=== PATIENT | male | born 1980 | race Two or more races ===

== ENCOUNTER 2016-11-18 21:12 | Emergency (ER) | payer OTHER, SELFPAY ==
[2016-11-18 21:27] VITALS: BP 124/84; PULSE 74; RESP 20; TEMP 98; O2SAT 95
[2016-11-18] MEDS ORDERED: Lidocaine 5% Patch TD ONE (21:43)
--- NOTE | 2016-11-18 21:44 | C.PDOC ---
History Of Present Illness 36 year old patient presents to the ED complaining of non-radiating lower back pain that started 3 hours prior to arrival. Patient states he was playing soccer with his kids, but there was no fall or injuries involved. Afterwards when he sat down, he felt a sharp and tightening pain. It was difficult to get up and ambulate. Patient feels better being seated. He denies any numbness, weakness, incontinence, or history of severe back pain. Patient took Tylenol with no relief. Time Seen by Provider: 11/18/16 21:34 Chief Complaint (Nursing): Back Pain History Per: Patient History/Exam Limitations: no limitations Onset/Duration Of Symptoms: Hrs (3 hours prior to arrival) Current Symptoms Are (Timing): Still Present Quality Of Discomfort: "Pain" Severity: Moderate Pain Scale Rating Of: 4 Previous Symptoms: Back Pain Associated Symptoms: None Exacerbating Factor(s): Movement, Standing Recent travel outside of the [place]: No Past Medical History Reviewed: Historical Data, Nursing Documentation, Vital Signs Vital Signs: Last Vital Signs Temp 98.0 F 11/18/16 21:26 Pulse 74 11/18/16 21:26 Resp 20 11/18/16 23:07 BP 124/84 11/18/16 21:26 Pulse Ox 95 11/18/16 22:37 - [facility] Procedures TETANUS TOXOID ADMINIST (10/04/13) Family History: States: Unknown Family Hx - Social History Hx Tobacco Use: No Hx Alcohol Use: Yes (socially) Hx Substance Use: No - Immunization History Hx Tetanus Toxoid Vaccination: Yes Hx Influenza Vaccination: No Hx Pneumococcal Vaccination: No Review Of Systems Except As Marked, All Systems Reviewed And Found Negative. Genitourinary: Negative for: Incontinence Musculoskeletal: Positive for: Back Pain Neurological: Negative for: Weakness, Numbness Physical Exam - Physical Exam Appears: Non-toxic, Other (uncomfortable, in pain) Skin: Warm, Dry Head: Atraumatic, Normacephalic Eye(s): bilateral: Normal Inspection, EOMI Neck: Normal ROM, Supple Chest: Symmetrical Cardiovascular: Rhythm Regular, No Murmur Respiratory: Normal Breath Sounds, No Accessory Muscle Use, No Wheezing Back: No CVA Tenderness, No Vertebral Tenderness, No Muscle Spasm, No Paraspinal Tenderness, Other (diffuse lumbo-sacral tenderness; pain with flexion ) Extremity: Normal ROM Neurological/Psych: Oriented x3, Normal Speech, Normal Motor, Normal Sensation Gait: Steady ED Course And Treatment O2 Sat by Pulse Oximetry: 95 (RA) Pulse Ox Interpretation: Normal Medical Decision Making Medical Decision Making: Impression: 36 y/o male with back pain Plan: * Valium * Toradol * Lidoderm Progress: 2230 Patient is ambulatory and reports pain is improving. He feels more comfortable walking and standing. Patient states he feels comfortable going home and will be discharged with Rx. Disposition Counseled Patient/Family Regarding: Diagnosis, Need For Followup, Rx Given - Disposition Disposition: HOME/ ROUTINE Disposition Time: 22:35 Condition: IMPROVED Additional Instructions: Follow up with your primary medical doctor or clinic in 2-5 days for further evaluation. Take medications as prescribed and as needed for back pain. Lidoderm patch is to be left on for 12 hours and then removed for 12 hours. Return to the emergency department at any time if symptoms persist or worsen. Prescriptions: Cyclobenzaprine [Cyclobenzaprine HCl] 10 mg PO TID #21 tab Ibuprofen [Motrin] 600 mg PO Q8 #30 tab Lidocaine 5% [Lidoderm] 1 ea TD Q12 #10 patch Instructions: Acute Low Back Pain (DC) Forms: Work Excuse - POA Present On Arrival: None - Clinical Impression Clinical Impression: Low back pain, Low back strain - PA / LEARNING DEVELOPER / Resident Statement MD/DO has reviewed & agrees with the documentation as recorded. - Scribe Statement The provider has reviewed the documentation as recorded by the Scribe Alina Saldivar All medical record entries made by the Scribe were at my direction and personally dictated by me. I have reviewed the chart and agree that the record accurately reflects my personal performance of the history, physical exam, medical decision making, and the department course for this patient. I have also personally directed, reviewed, and agree with the discharge instructions and disposition.
[2016-11-19] MEDS ORDERED: Lidocaine 5% Patch TD SCH (10:00)
== END 2016-11-18 23:07 | disposition home or self-care (01) ==
LOC: C.ER 21:12
DX: S39.012A Strain of muscle, fascia and tendon of lower back, initial encounter (principal); X58.XXXA Exposure to other specified factors, initial encounter; Y93.66 Activity, soccer
CPT/HCPCS: 96372; 99284; J1885

== ENCOUNTER 2017-12-10 09:51 | Observation (INO) | payer OTHER ==
[2017-12-10 10:09] VITALS: BMI 21.6
[2017-12-10] MEDS ORDERED: Sodium Chloride 0.9% 1,000 ML IV ONE (10:55)
--- NOTE | 2017-12-10 10:55 | C.PDOC ---
History Of Present Illness 37-year-old male presents to the ED complaining of dizziness associated with nausea and vomiting for 3 days. Dizziness is described as room-spinning, and worsens with movement and change in position. Patient denies recent URI symptoms , fevers, headache, ear pain or discharge. No abdominal pain. Patient denies prior history of vertigo. VERTIGO-LIKE DIZZY, NV X 3 DAYS. INTERMIT WORSE W MOVEMENT/POSITION CHANGE. DENIES RECENT URI, [place], EAR SX. NO ABD PAIN. DENIES PRIOR HO VERTIGO EXAM MOD DIST NONTOXIC HEENT NO NYSTAGMUS. NEURO NO FOCAL DEF. INDUCIBLE VERTIGO W MOVEMENT REMAINDER NEG Time Seen by Provider: 12/10/17 10:07 Chief Complaint (Nursing): Dizziness/Lightheaded History Per: Patient History/Exam Limitations: no limitations Onset/Duration Of Symptoms: Days (x3) Current Symptoms Are (Timing): Still Present Activity At Onset Of Symptoms: Change In Head Position Possible Causative Factor(s): Vertigo Fall Associated With With Symptoms: No Past Medical History Reviewed: Historical Data, Nursing Documentation, Vital Signs Vital Signs: Last Vital Signs Temp 97.9 F 12/10/17 12:45 Pulse 79 12/10/17 12:45 Resp 18 12/10/17 12:45 BP 117/69 12/10/17 12:45 Pulse Ox 97 12/10/17 15:32 Surgical History: No Surg Hx - [facility] Procedures TETANUS TOXOID ADMINIST (10/04/13) Family History: States: Unknown Family Hx - Social History Hx Tobacco Use: No Hx Alcohol Use: Yes (socially) Hx Substance Use: No - Immunization History Hx Tetanus Toxoid Vaccination: Yes Hx Influenza Vaccination: No Hx Pneumococcal Vaccination: No Review Of Systems Except As Marked, All Systems Reviewed And Found Negative. Constitutional: Negative for: Fever, Chills ENT: Negative for: Ear Pain, Ear Discharge, Nose Congestion, Throat Pain Respiratory: Negative for: Cough, Shortness of Breath Gastrointestinal: Positive for: Nausea, Vomiting. Negative for: Abdominal Pain Musculoskeletal: Negative for: Neck Pain Neurological: Positive for: Dizziness. Negative for: Weakness, Numbness, Headache Physical Exam - Physical Exam Appears: Non-toxic, In Acute Distress (moderate) Skin: Normal Color, Warm, Dry Head: Atraumatic, Normacephalic Eye(s): bilateral: Normal Inspection (with no nystagmus), PERRL, EOMI Ear(s): Bilateral: Normal Nose: Normal Oral Mucosa: Moist Neck: Normal ROM, Supple Chest: Symmetrical Cardiovascular: Rhythm Regular, No Murmur Respiratory: Normal Breath Sounds, No Accessory Muscle Use, Other (No acute respiratory distress) Gastrointestinal/Abdominal: Soft, No Tenderness, No Distention Back: Normal Inspection, No CVA Tenderness, No Vertebral Tenderness Extremity: Bilateral: Atraumatic, Normal Color And Temperature, Normal ROM Pulses: Left Radial: Normal, Right Radial: Normal Neurological/Psych: Oriented x3, Normal Speech, Normal Cranial Nerves, Normal Motor (with no focal deficits), Normal Sensation, Other (Inducible vertigo with movement) Gait: Steady ED Course And Treatment - Laboratory Results Result Diagrams: 12/10/17 16:01 12/10/17 16:01 ECG: Interpreted By Me ECG Rhythm: Sinus Rhythm Rate From EC O2 Sat by Pulse Oximetry: 97 (RA) Pulse Ox Interpretation: Normal Progress - Re-Evaluation Re-evaluation Note: 12/10/17 15:20 PERSIST VERTIGO, NV S/P MECLIZINE AND ATIVAN. UNSTEADY GAIT, INDUCIBLE VERTIGO W MINIMAL POSITION CHANGE. PENDING CALLBACK MED DIRECT CARE STAFFER 12/10/17 15:24 D/W DR MOSELEY AWARE OF ER FINDINGS WILL ADMIT. LABS PENDING. - Interventions Interventions:: Intravenous fluid - Medications Administered Oral: Other (Meclizine) Intravenous: Other (Reglan) - Data Reviewed Data Reviewed: Lab, Diagnostic imaging, EKG, Old records Medical Decision Making Medical Decision Making: Initial Impression: 37 y/o with vertigo-like dizziness, nausea, vomiting Differential Diagnosis includes vertigo, r/o intracranial abnormality Initial Plan: * CT Head * IVF hydration * Trial of meclizine and reglan Disposition Counseled Patient/Family Regarding: Studies Performed, Diagnosis - Disposition Disposition: HOSPITALIZED Disposition Time: 15:24 Condition: STABLE - POA Present On Arrival: None - Clinical Impression Clinical Impression: Intractable vomiting, Peripheral vertigo, unspecified - Scribe Statement The provider has reviewed the documentation as recorded by the Scribe (Annette Casiano) Provider Attestation: All medical record entries made by the Scribe were at my direction and personally dictated by me. I have reviewed the chart and agree that the record accurately reflects my personal performance of the history, physical exam, medical decision making, and the department course for this patient. I have also personally directed, reviewed, and agree with the discharge instructions and disposition. Decision To Admit - Pt Status Changed To: Hospital Disposition Of: Observation - . Bed Request Type: Regular Admitting Physician: Charlotte Moseley Patient Diagnosis: Intractable vomiting, Peripheral vertigo, unspecified
[2017-12-10] MEDS ORDERED: Sodium Chloride 0.9% 1,000 ML ONE (11:06)
--- NOTE | 2017-12-10 14:11 | CT ---
PROCEDURE: CT HEAD WITHOUT CONTRAST. HISTORY: VERTIGO COMPARISON: None available. TECHNIQUE: Axial computed tomography images were obtained through the head/brain without intravenous contrast. Radiation dose: Total exam DLP = 970.10 mGy-cm. This CT exam was performed using one or more of the following dose reduction techniques: Automated exposure control, adjustment of the mA and/or kV according to patient size, and/or use of iterative reconstruction technique. FINDINGS: HEMORRHAGE: No intracranial hemorrhage. BRAIN: No mass effect or edema. No atrophy or chronic microvascular ischemic changes. VENTRICLES: Unremarkable. No hydrocephalus. CALVARIUM: Unremarkable. PARANASAL SINUSES: Unremarkable as visualized. No significant inflammatory changes. MASTOID AIR CELLS: Unremarkable as visualized. No inflammatory changes. OTHER FINDINGS: None. IMPRESSION: Normal CT of the Head. No intracranial mass, hemorrhage or evidence of acute infarct.
[2017-12-10 16:05] LABS: BASO # 0.1 K/uL (0.0-0.2); BASO % 0.5 % (0.0-2.0); EOS % 0.2 % (0.0-4.0); HEMOGLOBIN 16.2 g/dL (12.0-18.0); LYMPH % 8.8 % (20.0-40.0); MEAN CELL VOLUME 91.9 fL (80.0-94.0); MEAN CORPUSCULAR HEMOGLOBIN 32.6 pg (27.0-31.0); MEAN CORPUSCULAR HGB CONC 35.4 g/dL (33.0-37.0); MONO # 0.4 K/uL (0.0-0.8); MONO % 3.4 % (0.0-10.0); NEUT # 9.5 K/uL (1.8-7.0); NEUT % 87.1 % (50.0-75.0); PLATELET COUNT 335 K/uL (130-400); RBC 4.98 Mil/uL (4.40-5.90); RED CELL DISTRIBUTION WIDTH 13.4 % (11.5-14.5); WHITE BLOOD COUNT 10.9 K/uL (4.8-10.8)
[2017-12-10] MEDS ORDERED: Lactated Ringer's 1,000 ML IV ONE (16:15)
[2017-12-10 16:16] LABS: BLOOD UREA NITROGEN 17 mg/dL (9-20); CALCIUM 9.5 mg/dl (8.6-10.4); GFR AFRICAN-AMERICAN > 60; GFR NON-AFRICAN AMERICAN > 60
--- NOTE | 2017-12-10 16:17 | CP.PCM.HP ---
<Tammie Smyth - Last Filed: 12/10/17 16:55> History of Present Illness - History of Present Illness History of Present Illness: CC - "N/V, Dizziness" HPI - 37-year-old male with no past medical history presents to the ED today complaining of dizziness associated with nausea and vomiting for 3 days. He stated this started 2 nights ago but came in the morning because he started vomiting. He states he has vomited many times today just saliva no blood. He is hungry but has not been able to eat this morning. Dizziness is described as room -spinning, and worsens with movement and change in position. Patient denies recent URI symptoms, fevers, headache, ear pain or discharge. Denies abdominal pain but states he had two watery BM this morning. No urinary complaints. Denies weakness, tingling, numbness but has difficulty ambulating with the dizziness. Patient denies prior history of vertigo. Pmhx - denies, occasional back pain Surg - hernia repair in 2014 (had reactions to anesthesia N/V) Meds - nasal spray for allergies, aspriin prn back pain Allergies - sulfa (rash), seasonal Fam Hx - grandfather with diabetes, no hx of [place], stroke, cancer Social - denies drug/tobacco use, occasional alcohol 1 drink of beer with dinner Proxy - Florecita Sosa () [phone] A/D - none Patient is a [employer] and thus stated he would not want blood transfusions. Present on Admission - Present on Admission Any Indicators Present on Admission: No Review of Systems - Constitutional Constitutional: absent: Chills, Fever, Frequent Falls - EENT Eyes: absent: Blurred Vision, Change in Vision, Other Visual Disturbances Ears: Disequilibrium, Dizziness. absent: Decreased Hearing, Ear Discharge, Ear Pain, Tinnitus, Abnormal Hearing Nose/Mouth/Throat: absent: Nasal Congestion, Nasal Discharge, Sinus Pain, Sinus Pressure, Sore Throat - Cardiovascular Cardiovascular: absent: Chest Pain, Chest Pain at Rest, Edema, Palpitations, Syncope - Respiratory Respiratory: absent: Cough, Dyspnea, Dyspnea on Exertion - Gastrointestinal Gastrointestinal: Diarrhea, Nausea, Vomiting. absent: Abdominal Pain, Constipation - Genitourinary Genitourinary: absent: Change in Urinary Stream, Difficulty Urinating - Neurological Neurological: Abnormal Gait, Dizziness. absent: Abnormal Hearing, Numbness, Headaches, Tingling, Weakness Past Patient History - Past Social History Smoking Status: Never Smoked - PSYCHIATRIC Hx Substance Use: No - SURGICAL HISTORY Hx Surgeries: No - ANESTHESIA Hx Anesthesia: No Meds Allergies/Adverse Reactions: Allergies Allergy/AdvReac Type Severity Reaction Status Date / Time Sulfa (Sulfonamide Allergy Verified 11/18/16 21:34 Antibiotics) Physical Exam - Constitutional Appears: Non-toxic, No Acute Distress Additional comments: Can't ambulate - Head Exam Head Exam: ATRAUMATIC, NORMAL INSPECTION, NORMOCEPHALIC - Eye Exam Eye Exam: EOMI, Normal appearance, PERRL. absent: Nystagmus, Scleral icterus Pupil Exam: NORMAL ACCOMODATION, PERRL - ENT Exam ENT Exam: Mucous Membranes Dry - Expanded ENT Exam Expanded Ear exam: absent: Auricular Hematoma, Auricular Trauma, External Canal Tenderness - Neck Exam Neck exam: Positive for: Normal Inspection. Negative for: Tenderness - Respiratory Exam Respiratory Exam: Clear to Auscultation Bilateral, NORMAL BREATHING PATTERN. absent: Accessory Muscle Use, Rales, Rhonchi, Wheezes - Cardiovascular Exam Cardiovascular Exam: REGULAR RHYTHM, +S1, +S2 - GI/Abdominal Exam GI & Abdominal Exam: Normal Bowel Sounds, Soft. absent: Distended, Firm, Guarding, Tenderness - Extremities Exam Extremities exam: Positive for: normal inspection. Negative for: calf tenderness, pedal edema - Back Exam Back exam: NORMAL INSPECTION. absent: CVA tenderness (L), CVA tenderness (R), paraspinal tenderness - Neurological Exam Neurological exam: Abnormal Gait, Alert, CN II-XII Intact, Oriented x3, Reflexes Normal Additional comments: Dizziness brought on by sitting, moving head. - Expanded Neurological Exam Expanded Patient oriented to: person, place, time Speech: Fluid Speech Cranial nerves: EOM's Intact: Normal, Facial Palsey w/Forehead Movement: Normal , Facial Palsey w/o Forehead Movement: Normal, Facial Sensation: Normal, Gag Reflex: Normal, Nystagmus: Normal, Tongue Deviation: Normal Upper motor neuron: Babinski Sign: Normal, Finn Neglect: Normal, Pronator Drift : Normal, Sensory Extinction: Normal Neuro motor strength exam: Left Upper Extremity: 5, Right Upper Extremity: 5, Left Lower Extremity: 5, Right Lower Extremity: 5 Coma Scale Motor Response: OBEYS COMMANDS Coma Scale Verbal: Oriented - Psychiatric Exam Psychiatric exam: Normal Affect, Normal Mood - Skin Skin Exam: Dry, Intact, Normal Color Results - Vital Signs Recent Vital Signs: Last Vital Signs Temp 97.9 F 12/10/17 12:45 Pulse 79 12/10/17 12:45 Resp 18 12/10/17 12:45 BP 117/69 12/10/17 12:45 Pulse Ox 97 12/10/17 15:32 - Labs Result Diagrams: 12/10/17 16:01 12/10/17 16:01 Labs: Laboratory Results - last 24 hr 12/10/17 16:01 WBC 10.9 H RBC 4.98 Hgb 16.2 Hct 45.7 MCV 91.9 MCH 32.6 H MCHC 35.4 RDW 13.4 Plt Count 335 MPV 8.0 Neut % (Auto) 87.1 H Lymph % (Auto) 8.8 L Cuming % (Auto) 3.4 Eos % (Auto) 0.2 Baso % (Auto) 0.5 Neut # (Auto) 9.5 H Lymph # (Auto) 1.0 Cuming # (Auto) 0.4 Eos # (Auto) 0.0 Baso # (Auto) 0.1 Assessment & Plan - Assessment and Plan (Free Text) Assessment: Intractable Vertigo likely secondary to BPPV or labrynthitis Head CT negative Ekg NSR Neurology consulted. Dr. Hernandez - help appreciated Consider MRI if no improvement LR at 100cc/hour Meclizine 25 mg PO TID Ativan 0.5 mg IVO Q8 prn severe dizziness Reglan 10mg IVP Q6 prn nausea/vomiting Fall risk protocol Prophylaxis SCDs Fall risk Liquid diet <Bharat Rubio - Last Filed: 12/11/17 10:02> Results - Vital Signs Recent Vital Signs: Last Vital Signs Temp 97.6 F 12/10/17 23:20 Pulse 64 12/10/17 23:20 Resp 20 12/10/17 23:20 BP 111/60 12/10/17 23:20 Pulse Ox 99 12/10/17 23:20 - Labs Result Diagrams: 12/11/17 07:49 12/11/17 07:49 Labs: Laboratory Results - last 24 hr 12/10/17 12/10/17 12/11/17 16:01 16:01 07:49 WBC 10.9 H 9.8 RBC 4.98 4.51 Hgb 16.2 14.6 Hct 45.7 41.7 MCV 91.9 92.4 MCH 32.6 H 32.5 H MCHC 35.4 35.1 RDW 13.4 13.4 Plt Count 335 284 MPV 8.0 7.4 Neut % (Auto) 87.1 H 76.5 H Lymph % (Auto) 8.8 L 15.3 L Cuming % (Auto) 3.4 7.0 Eos % (Auto) 0.2 0.8 Baso % (Auto) 0.5 0.4 Neut # (Auto) 9.5 H 7.5 H Lymph # (Auto) 1.0 1.5 Cuming # (Auto) 0.4 0.7 Eos # (Auto) 0.0 0.1 Baso # (Auto) 0.1 0.0 Neutrophils % (Manual) 81 H Band Neutrophils % 1 Lymphocytes % (Manual) 12 L Monocytes % (Manual) 4 Eosinophils % (Manual) 2 Platelet Estimate Normal Sodium 143 Potassium 4.6 Chloride 107 Carbon Dioxide 23 Anion Gap 18 BUN 17 Creatinine 0.7 L Est GFR ( Amer) > 60 Est GFR (Non-Af Amer) > 60 Random Glucose 101 Calcium 9.5 Magnesium Total Bilirubin AST ALT Alkaline Phosphatase Total Protein Albumin Globulin Albumin/Globulin Ratio 12/11/17 07:49 WBC RBC Hgb Hct MCV MCH MCHC RDW Plt Count MPV Neut % (Auto) Lymph % (Auto) Cuming % (Auto) Eos % (Auto) Baso % (Auto) Neut # (Auto) Lymph # (Auto) Cuming # (Auto) Eos # (Auto) Baso # (Auto) Neutrophils % (Manual) Band Neutrophils % Lymphocytes % (Manual) Monocytes % (Manual) Eosinophils % (Manual) Platelet Estimate Sodium 142 Potassium 3.6 Chloride 108 H Carbon Dioxide 26 Anion Gap 11 BUN 12 Creatinine 0.6 L Est GFR ( Amer) > 60 Est GFR (Non-Af Amer) > 60 Random Glucose 86 Calcium 8.9 Magnesium 1.9 Total Bilirubin 0.8 AST 32 ALT 28 Alkaline Phosphatase 55 Total Protein 6.7 Albumin 3.6 Globulin 3.1 Albumin/Globulin Ratio 1.1 Attending/Attestation - Attestation I have personally seen and examined this patient.: Yes I have fully participated in the care of the patient.: Yes I have reviewed all pertinent clinical information: Yes Notes (Text): Patient was seen and examined in the ER Severe vertigo and vomiting,No fever,no headache,no nystagmus,no weakness,no significant past medical problem. Likely due to labrynthitis.Unlikely cerebellar stroke. CT brain is normal. We will get neurologist opinion Order ativan,zofran ,meclizine and fluids d/w patient and his at bedside I agree with the resident's assessment and the plan.
[2017-12-10 18:20] LABS: BANDS 1 % (0-2); EOSINOPHIL 2 % (0-4); LYMPHOCYTE 12 % (20-40); MONOCYTE 4 % (0-10); NEUTROPHIL 81 % (50-75); PLATELET ESTIMATE NORMAL (NORMAL); TOTAL CELLS COUNTED 100
[2017-12-10] MEDS ORDERED: Lactated Ringer's 1,000 ML ONE (19:00)
[2017-12-10] MEDS ORDERED: diaZEpam 10 mg/2 ml Inj IVP ONE (20:55)
[2017-12-10] MEDS ORDERED: Iodixanol 320 MG/ML 100 ML BOTTLE IV ONE (21:31)
--- NOTE | 2017-12-11 00:06 | CT ---
EXAM: CT Angiography Head With Intravenous Contrast CT Angiography Neck With Intravenous Contrast EXAM DATE/TIME: 12/10/2017 9:00 PM CLINICAL HISTORY: 37 years old, male; Signs and symptoms; Dizziness and giddiness and vertigo; Additional info: Vertigo/ vomiting/ear pain TECHNIQUE: Axial computed tomographic angiography images of the head and neck with intravenous contrast using CT angiography protocol. All CT scans at this facility use one or more dose reduction techniques, viz.: automated exposure control; ma/kV adjustment per patient size (including targeted exams where dose is matched to indication; i.e. head); or iterative reconstruction technique. All CT scans at this facility use one or more dose reduction techniques, viz.: automated exposure control; ma/kV adjustment per patient size (including targeted exams where dose is matched to indication; i.e. head); or iterative reconstruction technique. MIP reconstructed images were created and reviewed. Coronal and sagittal reformatted images were created and reviewed. CONTRAST: 100 mL of VISIPAQUE 320 administered intravenously. COMPARISON: Recent head CT 2017-12-10 13:48 FINDINGS: LIMITATIONS: Streak artifact from metallic dental hardware. HEAD: RIGHT ANTERIOR CEREBRAL ARTERY: No evidence of occlusion. No aneurysm visualized. RIGHT MIDDLE CEREBRAL ARTERY: No evidence of occlusion. No aneurysm visualized. RIGHT POSTERIOR CEREBRAL ARTERY: No evidence of occlusion. No aneurysm visualized. LEFT ANTERIOR CEREBRAL ARTERY: No evidence of occlusion. No aneurysm visualized. LEFT MIDDLE CEREBRAL ARTERY: No evidence of occlusion. No aneurysm visualized. LEFT POSTERIOR CEREBRAL ARTERY: Best seen on image 79 of series 606, there are findings suspicious for a stenosis of the P3 segment of the left posterior cerebral artery. There is no evidence of occlusion. BASILAR ARTERY: No evidence of occlusion or significant stenosis. No aneurysm visualized. NECK: RIGHT COMMON CAROTID ARTERY: No evidence of occlusion or significant stenosis. No evidence of dissection. RIGHT INTERNAL CAROTID ARTERY: No significant plaque. No evidence of occlusion. No aneurysm visualized. RIGHT EXTERNAL CAROTID ARTERY: No evidence of occlusion. RIGHT VERTEBRAL ARTERY: No evidence of occlusion or significant stenosis. No evidence of dissection. LEFT COMMON CAROTID ARTERY: No evidence of occlusion or significant stenosis. No evidence of dissection. LEFT INTERNAL CAROTID ARTERY: No significant plaque. No evidence of occlusion. No aneurysm visualized. LEFT EXTERNAL CAROTID ARTERY: No evidence of occlusion. LEFT VERTEBRAL ARTERY: No evidence of occlusion or significant stenosis. No evidence of dissection. LUNG APICES: Azygous fissure incidentally noted in the right lung apex, a normal variant. HEAD and NECK: BONES/JOINTS: No acute bony abnormality identified. SOFT TISSUES: No acute abnormality of the visualized soft tissues seen. OTHER FINDINGS: . CAROTID STENOSIS REFERENCE USING NASCET CRITERIA: % ICA stenosis = (1 - narrowest ICA diameter/diameter of distal cervical ICA) x 100. Mild - <50% stenosis. Moderate - 50-69% stenosis. Severe - 70-94% stenosis. Near occlusion - 95-99% stenosis. Occluded - 100% stenosis. IMPRESSION: - No evidence of occlusion or other acute abnormality of the major arteries. - Findings suspicious for a stenosis of the P3 segment of the left posterior cerebral artery, an unusual finding in a patient of this age. - See above for remaining findings.
[2017-12-11 07:59] LABS: BASO % 0.4 % (0.0-2.0); EOS # 0.1 K/uL (0.0-0.7); EOS % 0.8 % (0.0-4.0); HEMOGLOBIN 14.6 g/dL (12.0-18.0); LYMPH # 1.5 K/uL (1.0-4.3); LYMPH % 15.3 % (20.0-40.0); MEAN CELL VOLUME 92.4 fL (80.0-94.0); MEAN CORPUSCULAR HEMOGLOBIN 32.5 pg (27.0-31.0); MEAN CORPUSCULAR HGB CONC 35.1 g/dL (33.0-37.0); MEAN PLATELET VOLUME 7.4 fL (7.2-11.7); MONO # 0.7 K/uL (0.0-0.8); NEUT # 7.5 K/uL (1.8-7.0); NEUT % 76.5 % (50.0-75.0); RBC 4.51 Mil/uL (4.40-5.90); RED CELL DISTRIBUTION WIDTH 13.4 % (11.5-14.5); WHITE BLOOD COUNT 9.8 K/uL (4.8-10.8)
[2017-12-11 08:13] LABS: ALB/GLOB RATIO 1.1 (1.0-2.1); ALBUMIN 3.6 g/dL (3.5-5.0); ALT/SGPT 28 U/L (21-72); AST/SGOT 32 U/L (17-59); BLOOD UREA NITROGEN 12 mg/dL (9-20); CALCIUM 8.9 mg/dl (8.6-10.4); GFR AFRICAN-AMERICAN > 60; GFR NON-AFRICAN AMERICAN > 60
--- NOTE | 2017-12-11 11:08 | MRI ---
PROCEDURE: MRI BRAIN WITHOUT CONTRAST HISTORY: suspicious stenosis of P3 segment of the left BUSINESS CHANGE MANAGER COMPARISON: Noncontrast head CT from 12/10/2017. TECHNIQUE: Multiplanar, multisequence MR images of the brain were obtained without intravenous contrast enhancement. FINDINGS: HEMORRHAGE: None DWI: No evidence of an acute or early subacute infarction. BRAIN PARENCHYMA: There are mild chronic microangiopathic changes. There is no mass, mass effect or abnormal extra-axial fluid collection. There is no territorial infarction. The midline sagittal structures are normal. VENTRICLES: The ventricles are normal in size, shape and configuration. CRANIUM: There is normal bone marrow signal pattern. ORBITS: Grossly unremarkable. PARANASAL SINUSES/MASTOIDS: There is mild mucosal thickening in the paranasal sinuses. The mastoid air cells are predominantly clear. VASCULAR SYSTEM: There are normal signal voids in the larger intracranial arteries. OTHER FINDINGS: None. IMPRESSION: No acute intracranial abnormality.
--- NOTE | 2017-12-11 11:15 | MRI ---
PROCEDURE: Magnetic Resonance Angiography Brain HISTORY: verify the suspicious P3 segment stenosis of the l COMPARISON: CTA head and neck from 12/10/2017. TECHNIQUE: 3D time of flight MR angiography of the intracranial arteries was performed. Rotating maximum intensity projection images were generated. FINDINGS: INTERNAL CAROTID ARTERIES: Normal flow related signal. The skull base, petrous, cavernous and supraclinoid segments are bilaterally widely patient. ANTERIOR CEREBRAL ARTERIES: Normal flow related signal. A1 and A2 segments are widely patent. Smaller distal branches unremarkable, as visualized. MIDDLE CEREBRAL ARTERIES: Normal flow related signal. M1 and M2 segments are widely patent. Perisylvian branches grossly symmetric. POSTERIOR CIRCULATION: Basilar Artery: Normal in caliber and widely patent. Distal Vertebral Arteries: Normal in caliber and widely patent. Posterior Cerebral Arteries: The posterior cerebral arteries are patent. There is focus short segment stenosis in the P3 segment of the left posterior cerebral artery. Posterior Inferior Cerebellar Arteries: Normal in caliber and widely patent. ANEURYSM/ VASCULAR MALFORMATIONS: None. OTHER FINDINGS: None. IMPRESSION: 1. No evidence of occlusion or saccular aneurysm. 2. 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
[2017-12-11] MEDS ORDERED: DiphenhydrAMINE 50 mg/ml Inj IVP STA (11:16)
--- NOTE | 2017-12-11 12:21 | CP.PCM.CON ---
History of Present Illness - History of Present Illness History of Present Illness: Mr. Sosa is a 37-year-old man with no significant past medical history, who states that on Saturday, he developed the sudden onset of vertigo. This improved on Saturday, then returned and was more aggressive on Saturday with associated blurry vision and other visual disturbances, mostly on the right side. According to the history, the patient has changed his diet drastically and has lost about 20 lbs in the last 6 weeks. Mostly abdominal fat. CTA of the head/ neck showed a left CHECKING CLERK stenosis. MRI did not show an infarct. MRA confirmed the stenosis. The patient responded well to Ativan, meclizine and Reglan. He was able to have a normal diet this morning. Review of Systems - Review of Systems All systems: reviewed and no additional remarkable complaints except Past Patient History - Past Medical History & Family History Past Medical History?: Yes - Past Social History Smoking Status: Never Smoked - MUSCULOSKELETAL/RHEUMATOLOGICAL Hx Falls: No - PSYCHIATRIC Hx Substance Use: No - SURGICAL HISTORY Hx Surgeries: No - ANESTHESIA Hx Anesthesia: No Meds Allergies/Adverse Reactions: Allergies Allergy/AdvReac Type Severity Reaction Status Date / Time Sulfa (Sulfonamide Allergy Verified 11/18/16 21:34 Antibiotics) - Medications Medications: Current Medications Heparin Sodium (Porcine) (Heparin) 5,000 units SC Q12 [facility] Last Admin: 12/11/17 09:54 Dose: 5,000 units Meclizine HCl (Antivert) 25 mg PO TID [facility] Last Admin: 12/11/17 09:54 Dose: 25 mg Metoclopramide HCl (Reglan) 10 mg IVP Q6 PRN PRN Reason: Nausea/Vomiting Last Admin: 12/11/17 01:11 Dose: 10 mg Physical Exam - Constitutional Appears: Well - Eye Exam Eye Exam: EOMI, Normal appearance, PERRL - Neurological Exam Neurological exam: Alert, CN II-XII Intact, Normal Gait, Oriented x3, Reflexes Normal Additional comments: Visual deficits with blurry/double vision to right lateral gaze with fast phase nystagmus to the left and slow phase to the right. Results - Vital Signs Recent Vital Signs: Last Vital Signs Temp 97.6 F 12/10/17 23:20 Pulse 64 12/10/17 23:20 Resp 20 12/10/17 23:20 BP 111/60 12/10/17 23:20 Pulse Ox 99 12/10/17 23:20 - Labs Result Diagrams: 12/11/17 07:49 12/11/17 07:49 Labs: Laboratory Results - last 24 hr 12/10/17 12/10/17 12/11/17 16:01 16:01 07:49 WBC 10.9 H 9.8 RBC 4.98 4.51 Hgb 16.2 14.6 Hct 45.7 41.7 MCV 91.9 92.4 MCH 32.6 H 32.5 H MCHC 35.4 35.1 RDW 13.4 13.4 Plt Count 335 284 MPV 8.0 7.4 Neut % (Auto) 87.1 H 76.5 H Lymph % (Auto) 8.8 L 15.3 L [place] % (Auto) 3.4 7.0 Eos % (Auto) 0.2 0.8 Baso % (Auto) 0.5 0.4 Neut # (Auto) 9.5 H 7.5 H Lymph # (Auto) 1.0 1.5 [place] # (Auto) 0.4 0.7 Eos # (Auto) 0.0 0.1 Baso # (Auto) 0.1 0.0 Neutrophils % (Manual) 81 H Band Neutrophils % 1 Lymphocytes % (Manual) 12 L Monocytes % (Manual) 4 Eosinophils % (Manual) 2 Platelet Estimate Normal Sodium 143 Potassium 4.6 Chloride 107 Carbon Dioxide 23 Anion Gap 18 BUN 17 Creatinine 0.7 L Est GFR ( Amer) > 60 Est GFR (Non-Af Amer) > 60 Random Glucose 101 Calcium 9.5 Magnesium Total Bilirubin AST ALT Alkaline Phosphatase Total Protein Albumin Globulin Albumin/Globulin Ratio 12/11/17 07:49 WBC RBC Hgb Hct MCV MCH MCHC RDW Plt Count MPV Neut % (Auto) Lymph % (Auto) [place] % (Auto) Eos % (Auto) Baso % (Auto) Neut # (Auto) Lymph # (Auto) [place] # (Auto) Eos # (Auto) Baso # (Auto) Neutrophils % (Manual) Band Neutrophils % Lymphocytes % (Manual) Monocytes % (Manual) Eosinophils % (Manual) Platelet Estimate Sodium 142 Potassium 3.6 Chloride 108 H Carbon Dioxide 26 Anion Gap 11 BUN 12 Creatinine 0.6 L Est GFR ( Amer) > 60 Est GFR (Non-Af Amer) > 60 Random Glucose 86 Calcium 8.9 Magnesium 1.9 Total Bilirubin 0.8 AST 32 ALT 28 Alkaline Phosphatase 55 Total Protein 6.7 Albumin 3.6 Globulin 3.1 Albumin/Globulin Ratio 1.1 Assessment & Plan (1) Blurry vision Assessment and Plan: This is mostly on the right side and may be related to the CHECKING CLERK stenosis on the left. I recommend starting dual antiplatelet therapy for intracranial stenosis with aspirin 81 mg and Plavix 75 mg daily. I also recommend NS at 100 mL/hr for the next 24 hours. Furthemore, I recommend the followin. Telemetry 2. Echocardiogram with bubble study 3. Lipid panel, HbA1c, B12, folate, ESR, CRP, homocysteine, hypercoagulable work -up 4. Vestibular rehab 5. Valium 2 mg PO Q12 PRN vertigo 6. PT/OT eval 7. Case management consult Thank you. Status: Acute (2) Vertigo Status: Resolved (3) Intractable vomiting Status: Resolved
[2017-12-11] MEDS: Sodium Chloride 0.9% 1,000 ML IV SCH ×2 (13:02→22:23)
--- NOTE | 2017-12-11 13:31 | CARD ---
APPROVED REPORT EKG Measurement Heart [id number] <Conclusion> Normal sinus rhythm Normal ECG
--- NOTE | 2017-12-11 15:31 | CP.PCM.PN ---
<Renee Evans - Last Filed: 12/11/17 15:49> Subjective - Date & Time of Evaluation Date of Evaluation: 12/11/17 Time of Evaluation: 07:00 - Subjective Subjective: Medicine Note for Hospitalist Service- Dr. Rubio Patient seen and examined at bedside. Patient reports today he started to have double vision and continued dizziness. This morning he woke up with a rash on his chest and lower back, no pruritus. Denied Objective - Vital Signs/Intake and Output Vital Signs (last 24 hours): Temp Pulse Resp BP Pulse Ox 97.6 F 64 20 111/60 99 12/10/17 23:20 12/10/17 23:20 12/10/17 23:20 12/10/17 23:20 12/10/17 23:20 Intake and Output: 12/11/17 12/11/17 06:59 18:59 Intake Total 1260 560 Balance 1260 560 - Medications Medications: Current Medications Aspirin (Aspirin Chewable) 81 mg PO DAILY [facility] Clopidogrel Bisulfate (Plavix) 75 mg PO DAILY [facility] Diazepam (Valium) 2 mg PO Q12 PRN PRN Reason: Dizziness Heparin Sodium (Porcine) (Heparin) 5,000 units SC Q12 [facility] Last Admin: 12/11/17 09:54 Dose: 5,000 units Sodium Chloride (Sodium Chloride 0.9%) 1,000 mls @ 100 mls/hr IV .Q10H [facility] Last Admin: 12/11/17 13:02 Dose: 100 mls/hr Meclizine HCl (Antivert) 25 mg PO TID [facility] Last Admin: 12/11/17 14:37 Dose: 25 mg Metoclopramide HCl (Reglan) 10 mg IVP Q6 PRN PRN Reason: Nausea/Vomiting Last Admin: 12/11/17 01:11 Dose: 10 mg - Labs Labs: 12/11/17 07:49 12/11/17 07:49 - Additional Findings Additional findings: - Constitutional Appears: Non-toxic, No Acute Distress Additional comments: - Head Exam Head Exam: ATRAUMATIC, NORMAL INSPECTION, NORMOCEPHALIC - Eye Exam Eye Exam: EOMI, Normal appearance, PERRL. absent: Nystagmus, Scleral icterus Pupil Exam: NORMAL ACCOMODATION, PERRL - ENT Exam ENT Exam: Mucous Membranes Dry - Expanded ENT Exam Expanded Ear exam: absent: Auricular Hematoma, Auricular Trauma, External Canal Tenderness - Neck Exam Neck exam: Positive for: Normal Inspection. Negative for: Tenderness - Respiratory Exam Respiratory Exam: Clear to Auscultation Bilateral, NORMAL BREATHING PATTERN. absent: Accessory Muscle Use, Rales, Rhonchi, Wheezes - Cardiovascular Exam Cardiovascular Exam: REGULAR RHYTHM, +S1, +S2 - GI/Abdominal Exam GI & Abdominal Exam: Normal Bowel Sounds, Soft. absent: Distended, Firm, Guarding, Tenderness - Extremities Exam Extremities exam: Positive for: normal inspection. Negative for: calf tenderness, pedal edema - Back Exam Back exam: NORMAL INSPECTION. absent: CVA tenderness (L), CVA tenderness (R), paraspinal tenderness - Neurological Exam Neurological exam: Abnormal Gait, Alert, CN II-XII Intact, Oriented x3, Reflexes Normal Additional comments: Dizziness brought on by sitting, moving head. Dizzy when ambulates - Expanded Neurological Exam Expanded Patient oriented to: person, place, time Speech: Fluid Speech Cranial nerves: EOM's Intact: Normal, Facial Palsey w/Forehead Movement: Normal , Facial Palsey w/o Forehead Movement: Normal, Facial Sensation: Normal, Gag Reflex: Normal, Nystagmus: Normal, Tongue Deviation: Normal Upper motor neuron: Babinski Sign: Normal, Finn Neglect: Normal, Pronator Drift : Normal, Sensory Extinction: Normal Neuro motor strength exam: Left Upper Extremity: 5, Right Upper Extremity: 5, Left Lower Extremity: 5, Right Lower Extremity: 5 Coma Scale Motor Response: OBEYS COMMANDS Coma Scale Verbal: Oriented - Psychiatric Exam Psychiatric exam: Normal Affect, Normal Mood - Skin Skin Exam: Dry, Intact, Normal Color Assessment and Plan - Assessment and Plan (Free Text) Plan: 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 Dr. Hernandez - help appreciated - Head CT negative - MRI - no infarct - Head/ Neck CTA / Head MRA - Stenosis of P3 Segment of TAILINGS [employer]ER - EKG- NSR - Follow up ECHO with bubble study - Hypercoagulable labs and routine labs Management: - Fall risk protocol - Will monitor on Tele to access for arrhythmias - NS at 100cc/hour - ASA 81mg PO/ Plavix 75mg PO daily - Meclizine 25 mg PO TID - Valium 2mg PO Q12 prn severe dizziness - Reglan 10mg IVP Q6 prn nausea/vomiting Prophylaxis - GI PPX - not indicated - SCDs, Heparin Q12 - PT/OT DW Renee Chau DO, PGY-1 <Bharat Rubio - Last Filed: 12/11/17 18:41> Objective - Vital Signs/Intake and Output Vital Signs (last 24 hours): Temp Pulse Resp BP Pulse Ox 98.0 F 85 20 128/78 97 12/11/17 17:50 12/11/17 17:50 12/11/17 17:50 12/11/17 17:50 12/11/17 17:50 Intake and Output: 12/11/17 12/11/17 06:59 18:59 Intake Total 1260 560 Balance 1260 560 - Medications Medications: Current Medications Aspirin (Aspirin Chewable) 81 mg PO DAILY [facility] Clopidogrel Bisulfate (Plavix) 75 mg PO DAILY [facility] Diazepam (Valium) 2 mg PO Q12 PRN PRN Reason: Dizziness Heparin Sodium (Porcine) (Heparin) 5,000 units SC Q12 [facility] Last Admin: 12/11/17 09:54 Dose: 5,000 units Sodium Chloride (Sodium Chloride 0.9%) 1,000 mls @ 100 mls/hr IV .Q10H [facility] Last Admin: 12/11/17 13:02 Dose: 100 mls/hr Meclizine HCl (Antivert) 25 mg PO TID [facility] Last Admin: 12/11/17 17:27 Dose: 25 mg Metoclopramide HCl (Reglan) 10 mg IVP Q6 PRN PRN Reason: Nausea/Vomiting Last Admin: 12/11/17 17:27 Dose: 10 mg - Labs Labs: 12/11/17 07:49 12/11/17 07:49 Attending/Attestation - Attestation I have personally seen and examined this patient.: Yes I have fully participated in the care of the patient.: Yes I have reviewed all pertinent clinical information, including history, physical exam and plan: Yes Notes (Text): Seen and examined by me. feeling better.Less dizzy,ambulate with some dizziness,Vomiting improving. c/o had right eye double vision. no vision loss,no nystagmus noted MRA shows left TAILINGS DAM [employer]ORER short segment stenosis d/w Dr Hernandez at 6T Plan discussed with the patient and his I agree with the resident's documentation of the assessment and the plan
--- NOTE | 2017-12-12 07:21 | CP.PCM.PN ---
Subjective - Date & Time of Evaluation Date of Evaluation: 12/12/17 Time of Evaluation: 07:16 - Subjective Subjective: Mr. Sosa was seen and examined at the bedside. He is alert, oriented in all spheres. He denies any headache, dizziness, nausea, or vomiting. He further claims of his dizziness is gone, but feels mild lightheadedness after his valium intake. He is able to ambulate to and from the bathroom in steady gait. He also claims of able to tolerate clear liquid diet. He verbalizes that he is always in the perez on a daily basis, but denies any kind of rashes or skin diseases. There was no untoward events overnight. Objective - Vital Signs/Intake and Output Vital Signs (last 24 hours): Temp Pulse Resp BP Pulse Ox 97.8 F 73 20 115/66 98 12/11/17 23:20 12/11/17 23:20 12/11/17 23:20 12/11/17 23:20 12/11/17 23:20 Intake and Output: 12/12/17 12/12/17 06:59 18:59 Intake Total 800 Balance 800 - Medications Medications: Current Medications Aspirin (Aspirin Chewable) 81 mg PO DAILY [facility] Clopidogrel Bisulfate (Plavix) 75 mg PO DAILY [facility] Diazepam (Valium) 2 mg PO Q12 PRN PRN Reason: Dizziness Last Admin: 12/11/17 22:01 Dose: 2 mg Heparin Sodium (Porcine) (Heparin) 5,000 units SC Q12 [facility] Last Admin: 12/11/17 22:01 Dose: 5,000 units Sodium Chloride (Sodium Chloride 0.9%) 1,000 mls @ 100 mls/hr IV .Q10H [facility] Last Admin: 12/11/17 22:23 Dose: Not Given Meclizine HCl (Antivert) 25 mg PO TID [facility] Last Admin: 12/11/17 17:27 Dose: 25 mg Metoclopramide HCl (Reglan) 10 mg IVP Q6 PRN PRN Reason: Nausea/Vomiting Last Admin: 12/11/17 17:27 Dose: 10 mg - Labs Labs: 12/11/17 07:49 12/11/17 07:49 - Constitutional Appears: No Acute Distress - Head Exam Head Exam: NORMAL INSPECTION - Eye Exam Pupil Exam: PERRL - Neurological Exam Neurological Exam: Alert, Awake, Oriented x3 Neuro motor strength exam: Left Upper Extremity: 5, Right Upper Extremity: 5, Left Lower Extremity: 5, Right Lower Extremity: 5 Additional comments: Alert, with mild lightheadedness, follows commands, sensation is intact. Assessment and Plan (1) Blurry vision Assessment & Plan: Case discussed with Dr. Hernandez, continue all current medical and physical therapy ( vestibular rehab). Pending echocardiogram. If patient will be discharge, recommend to follow up with Dr. 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 Status: Acute
[2017-12-12 07:22] LABS: BASO # 0.1 K/uL (0.0-0.2); BASO % 0.8 % (0.0-2.0); EOS % 0.4 % (0.0-4.0); HEMOGLOBIN 15.1 g/dL (12.0-18.0); LYMPH # 2.1 K/uL (1.0-4.3); LYMPH % 28.5 % (20.0-40.0); MEAN CELL VOLUME 91.5 fL (80.0-94.0); MEAN CORPUSCULAR HEMOGLOBIN 32.5 pg (27.0-31.0); MEAN CORPUSCULAR HGB CONC 35.5 g/dL (33.0-37.0); MEAN PLATELET VOLUME 7.7 fL (7.2-11.7); MONO # 0.5 K/uL (0.0-0.8); MONO % 7.2 % (0.0-10.0); NEUT # 4.7 K/uL (1.8-7.0); NEUT % 63.1 % (50.0-75.0); RBC 4.64 Mil/uL (4.40-5.90); RED CELL DISTRIBUTION WIDTH 13.1 % (11.5-14.5); WHITE BLOOD COUNT 7.4 K/uL (4.8-10.8)
[2017-12-12 07:36] LABS: ALB/GLOB RATIO 1.3 (1.0-2.1); ALBUMIN 4.4 g/dL (3.5-5.0); ALT/SGPT 21 U/L (21-72); AST/SGOT 37 U/L (17-59); BLOOD UREA NITROGEN 10 mg/dL (9-20); GFR AFRICAN-AMERICAN > 60; GFR NON-AFRICAN AMERICAN > 60; HDL CHOLESTEROL 44 mg/dL (30-70)
[2017-12-12 07:42] LABS: LDL CHOLESTEROL 77 mg/dL (0-129)
[2017-12-12 08:44] LABS: FOLATE 11.6 ng/mL
[2017-12-12 08:45] VITALS: BP 113/78; PULSE 60; RESP 18; TEMP 97.5; O2SAT 100
[2017-12-12 09:09] LABS: FREE T4 1.24 ng/dL (0.78-2.19)
[2017-12-12] MEDS: Sodium Chloride 0.9% 1,000 ML IV SCH (09:18)
--- NOTE | 2017-12-12 10:37 | CP.PCM.DIS ---
Provider - Provider Date of Admission: 12/10/17 15:32 Attending physician: Bharat Rubio MD Hospital Course - Lab Results Lab Results: Most Recent Lab Values WBC 7.4 K/uL (4.8-10.8) 12/12/17 06:22 RBC 4.64 Mil/uL (4.40-5.90) 12/12/17 06:22 Hgb 15.1 g/dL (12.0-18.0) 12/12/17 06:22 Hct 42.4 % (35.0-51.0) 12/12/17 06:22 MCV 91.5 fL (80.0-94.0) 12/12/17 06:22 MCH 32.5 pg (27.0-31.0) H 12/12/17 06:22 MCHC 35.5 g/dL (33.0-37.0) 12/12/17 06:22 RDW 13.1 % (11.5-14.5) 12/12/17 06:22 Plt Count 288 K/uL (130-400) 12/12/17 06:22 MPV 7.7 fL (7.2-11.7) 12/12/17 06:22 Neut % (Auto) 63.1 % (50.0-75.0) 12/12/17 06:22 Lymph % (Auto) 28.5 % (20.0-40.0) 12/12/17 06:22 [place] % (Auto) 7.2 % (0.0-10.0) 12/12/17 06:22 Eos % (Auto) 0.4 % (0.0-4.0) 12/12/17 06:22 Baso % (Auto) 0.8 % (0.0-2.0) 12/12/17 06:22 Neut # (Auto) 4.7 K/uL (1.8-7.0) 12/12/17 06:22 Lymph # (Auto) 2.1 K/uL (1.0-4.3) 12/12/17 06:22 [place] # (Auto) 0.5 K/uL (0.0-0.8) 12/12/17 06:22 Eos # (Auto) 0.0 K/uL (0.0-0.7) 12/12/17 06:22 Baso # (Auto) 0.1 K/uL (0.0-0.2) 12/12/17 06:22 Neutrophils % (Manual) 81 % (50-75) H 12/10/17 16:01 Band Neutrophils % 1 % (0-2) 12/10/17 16:01 Lymphocytes % (Manual) 12 % (20-40) L 12/10/17 16:01 Monocytes % (Manual) 4 % (0-10) 12/10/17 16:01 Eosinophils % (Manual) 2 % (0-4) 12/10/17 16:01 Platelet Estimate Normal (NORMAL) 12/10/17 16:01 ESR 2 mm/hr (0-15) 12/12/17 06:22 Sodium 143 mmol/L (132-148) 12/12/17 06:22 Potassium 3.5 mmol/L (3.6-5.2) L 12/12/17 06:22 Chloride 107 mmol/L (98-107) 12/12/17 06:22 Carbon Dioxide 25 mmol/L (22-30) 12/12/17 06:22 Anion Gap 15 (10-20) 12/12/17 06:22 BUN 10 mg/dL (9-20) 12/12/17 06:22 Creatinine 0.7 mg/dL (0.8-1.5) L 12/12/17 06:22 Est GFR ( Amer) > 60 12/12/17 06:22 Est GFR (Non-Af Amer) > 60 12/12/17 06:22 Random Glucose 81 mg/dL (75-110) 12/12/17 06:22 Hemoglobin A1c 4.8 % (4.2-6.5) 12/12/17 06:22 Calcium 9.0 mg/dl (8.6-10.4) 12/12/17 06:22 Phosphorus 3.0 mg/dL (2.5-4.5) 12/12/17 06:22 Magnesium 1.9 mg/dL (1.6-2.3) 12/12/17 06:22 Total Bilirubin 0.8 mg/dL (0.2-1.3) 12/12/17 06:22 AST 37 U/L (17-59) 12/12/17 06:22 ALT 21 U/L (21-72) D 12/12/17 06:22 Alkaline Phosphatase 56 U/L (38-126) 12/12/17 06:22 C-React Prot High Sens 1.69 mg/L (1.00-3.00) 12/12/17 06:22 Total Protein 7.7 g/dL (6.3-8.3) 12/12/17 06:22 Albumin 4.4 g/dL (3.5-5.0) 12/12/17 06:22 Globulin 3.3 gm/dL (2.2-3.9) 12/12/17 06:22 Albumin/Globulin Ratio 1.3 (1.0-2.1) 12/12/17 06:22 Triglycerides 95 mg/dL (0-149) 12/12/17 06:22 Cholesterol 157 mg/dL (0-199) 12/12/17 06:22 LDL Cholesterol Direct 77 mg/dL (0-129) 12/12/17 06:22 HDL Cholesterol 44 mg/dL (30-70) 12/12/17 06:22 Vitamin B12 478 pg/mL (239-931) 12/12/17 06:22 Folate 11.6 ng/mL 12/12/17 06:22 Homocysteine 7.8 umol/L (6.6-14.8) 12/12/17 06:22 Free T4 1.24 ng/dL (0.78-2.19) 12/12/17 06:22 TSH 3rd Generation 1.92 mIU/L (0.46-4.68) 12/12/17 06:22 Discharge Exam - Head Exam Head Exam: NORMAL INSPECTION Discharge Plan - Follow Up Plan Condition: STABLE Disposition: HOME/ ROUTINE
--- NOTE | 2017-12-12 10:47 | CP.PCM.DIS ---
Provider - Provider Date of Admission: 12/10/17 15:32 Attending physician: Bharat Rubio MD Time Spent in preparation of Discharge (in minutes): 55 Hospital Course - Lab Results Lab Results: Most Recent Lab Values WBC 7.4 K/uL (4.8-10.8) 12/12/17 06:22 RBC 4.64 Mil/uL (4.40-5.90) 12/12/17 06:22 Hgb 15.1 g/dL (12.0-18.0) 12/12/17 06:22 Hct 42.4 % (35.0-51.0) 12/12/17 06:22 MCV 91.5 fL (80.0-94.0) 12/12/17 06:22 MCH 32.5 pg (27.0-31.0) H 12/12/17 06:22 MCHC 35.5 g/dL (33.0-37.0) 12/12/17 06:22 RDW 13.1 % (11.5-14.5) 12/12/17 06:22 Plt Count 288 K/uL (130-400) 12/12/17 06:22 MPV 7.7 fL (7.2-11.7) 12/12/17 06:22 Neut % (Auto) 63.1 % (50.0-75.0) 12/12/17 06:22 Lymph % (Auto) 28.5 % (20.0-40.0) 12/12/17 06:22 Pettis % (Auto) 7.2 % (0.0-10.0) 12/12/17 06:22 Eos % (Auto) 0.4 % (0.0-4.0) 12/12/17 06:22 Baso % (Auto) 0.8 % (0.0-2.0) 12/12/17 06:22 Neut # (Auto) 4.7 K/uL (1.8-7.0) 12/12/17 06:22 Lymph # (Auto) 2.1 K/uL (1.0-4.3) 12/12/17 06:22 Pettis # (Auto) 0.5 K/uL (0.0-0.8) 12/12/17 06:22 Eos # (Auto) 0.0 K/uL (0.0-0.7) 12/12/17 06:22 Baso # (Auto) 0.1 K/uL (0.0-0.2) 12/12/17 06:22 Neutrophils % (Manual) 81 % (50-75) H 12/10/17 16:01 Band Neutrophils % 1 % (0-2) 12/10/17 16:01 Lymphocytes % (Manual) 12 % (20-40) L 12/10/17 16:01 Monocytes % (Manual) 4 % (0-10) 12/10/17 16:01 Eosinophils % (Manual) 2 % (0-4) 12/10/17 16:01 Platelet Estimate Normal (NORMAL) 12/10/17 16:01 ESR 2 mm/hr (0-15) 12/12/17 06:22 Sodium 143 mmol/L (132-148) 12/12/17 06:22 Potassium 3.5 mmol/L (3.6-5.2) L 12/12/17 06:22 Chloride 107 mmol/L (98-107) 12/12/17 06:22 Carbon Dioxide 25 mmol/L (22-30) 12/12/17 06:22 Anion Gap 15 (10-20) 12/12/17 06:22 BUN 10 mg/dL (9-20) 12/12/17 06:22 Creatinine 0.7 mg/dL (0.8-1.5) L 12/12/17 06:22 Est GFR ( Amer) > 60 12/12/17 06:22 Est GFR (Non-Af Amer) > 60 12/12/17 06:22 Random Glucose 81 mg/dL (75-110) 12/12/17 06:22 Hemoglobin A1c 4.8 % (4.2-6.5) 12/12/17 06:22 Calcium 9.0 mg/dl (8.6-10.4) 12/12/17 06:22 Phosphorus 3.0 mg/dL (2.5-4.5) 12/12/17 06:22 Magnesium 1.9 mg/dL (1.6-2.3) 12/12/17 06:22 Total Bilirubin 0.8 mg/dL (0.2-1.3) 12/12/17 06:22 AST 37 U/L (17-59) 12/12/17 06:22 ALT 21 U/L (21-72) D 12/12/17 06:22 Alkaline Phosphatase 56 U/L (38-126) 12/12/17 06:22 C-React Prot High Sens 1.69 mg/L (1.00-3.00) 12/12/17 06:22 Total Protein 7.7 g/dL (6.3-8.3) 12/12/17 06:22 Albumin 4.4 g/dL (3.5-5.0) 12/12/17 06:22 Globulin 3.3 gm/dL (2.2-3.9) 12/12/17 06:22 Albumin/Globulin Ratio 1.3 (1.0-2.1) 12/12/17 06:22 Triglycerides 95 mg/dL (0-149) 12/12/17 06:22 Cholesterol 157 mg/dL (0-199) 12/12/17 06:22 LDL Cholesterol Direct 77 mg/dL (0-129) 12/12/17 06:22 HDL Cholesterol 44 mg/dL (30-70) 12/12/17 06:22 Vitamin B12 478 pg/mL (239-931) 12/12/17 06:22 Folate 11.6 ng/mL 12/12/17 06:22 Homocysteine 7.8 umol/L (6.6-14.8) 12/12/17 06:22 Free T4 1.24 ng/dL (0.78-2.19) 12/12/17 06:22 TSH 3rd Generation 1.92 mIU/L (0.46-4.68) 12/12/17 06:22 - Hospital Course Hospital Course: Upon Admission: CC - "N/V, Dizziness" HPI - 37-year-old male with no past medical history presents to the ED today complaining of dizziness associated with nausea and vomiting for 3 days. He stated this started 2 nights ago but came in the morning because he started vomiting. He states he has vomited many times today just saliva no blood. He is hungry but has not been able to eat this morning. Dizziness is described as room -spinning, and worsens with movement and change in position. Patient denies recent URI symptoms, fevers, headache, ear pain or discharge. Denies abdominal pain but states he had two watery BM this morning. No urinary complaints. Denies weakness, tingling, numbness but has difficulty ambulating with the dizziness. Patient denies prior history of vertigo. Pmhx - denies, occasional back pain Surg - hernia repair in 2015 (had reactions to anesthesia N/V) Meds - nasal spray for allergies, aspriin prn back pain Allergies - sulfa (rash), seasonal Fam Hx - grandfather with diabetes, no hx of [place], stroke, cancer Social - denies drug/tobacco use, occasional alcohol 1 drink of beer with dinner Proxy - Florecita Sosa () [phone] A/D - none Patient is a [employer] and thus stated he would not want blood transfusions. 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 Dr. 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 Discharge Exam - Additional Findings Additional findings: - Constitutional Appears: Non-toxic, No Acute Distress Additional comments: - Head Exam Head Exam: ATRAUMATIC, NORMAL INSPECTION, NORMOCEPHALIC - Eye Exam Eye Exam: EOMI, Normal appearance, PERRL. absent: Nystagmus, Scleral icterus Pupil Exam: NORMAL ACCOMODATION, PERRL - ENT Exam ENT Exam: Mucous Membranes Dry - Expanded ENT Exam Expanded Ear exam: absent: Auricular Hematoma, Auricular Trauma, External Canal Tenderness - Neck Exam Neck exam: Positive for: Normal Inspection. Negative for: Tenderness - Respiratory Exam Respiratory Exam: Clear to Auscultation Bilateral, NORMAL BREATHING PATTERN. absent: Accessory Muscle Use, Rales, Rhonchi, Wheezes - Cardiovascular Exam Cardiovascular Exam: REGULAR RHYTHM, +S1, +S2 - GI/Abdominal Exam GI & Abdominal Exam: Normal Bowel Sounds, Soft. absent: Distended, Firm, Guarding, Tenderness - Extremities Exam Extremities exam: Positive for: normal inspection. Negative for: calf tenderness, pedal edema - Back Exam Back exam: NORMAL INSPECTION. absent: CVA tenderness (L), CVA tenderness (R), paraspinal tenderness - Neurological Exam Neurological exam: Abnormal Gait, Alert, CN II-XII Intact, Oriented x3, Reflexes Normal Additional comments: Dizziness brought on by sitting, moving head. Dizzy when ambulates - Expanded Neurological Exam Expanded Patient oriented to: person, place, time Speech: Fluid Speech Cranial nerves: EOM's Intact: Normal, Facial Palsey w/Forehead Movement: Normal , Facial Palsey w/o Forehead Movement: Normal, Facial Sensation: Normal, Gag Reflex: Normal, Nystagmus: Normal, Tongue Deviation: Normal Upper motor neuron: Babinski Sign: Normal, Finn Neglect: Normal, Pronator Drift : Normal, Sensory Extinction: Normal Neuro motor strength exam: Left Upper Extremity: 5, Right Upper Extremity: 5, Left Lower Extremity: 5, Right Lower Extremity: 5 Coma Scale Motor Response: OBEYS COMMANDS Coma Scale Verbal: Oriented - Psychiatric Exam Psychiatric exam: Normal Affect, Normal Mood - Skin Skin Exam: Dry, Intact, Normal Color Discharge Plan - Discharge Medications Prescriptions: Aspirin [Aspirin Chewable] 81 mg PO DAILY #30 chew Clopidogrel [Plavix] 75 mg PO DAILY #30 tab Meclizine [Meclizine*] 25 mg PO TID PRN #30 tab PRN Reason: Dizziness Ondansetron ODT [Zofran ODT] 8 mg PO Q6H PRN #30 odt PRN Reason: Nausea/Vomiting - Follow Up Plan Condition: STABLE Disposition: HOME/ ROUTINE Instructions: Vertigo (a Type of Dizziness), Labyrinthitis Additional Instructions: You are to follow up with Dr. Hernandez the neurologist in 1-2 weeks. Please follow up with your primary care doctor in 1-2 weeks. Please retrieve a copy of your medical records to provide to your primary care physician. Please continue to take the following medications until told otherwise: ASA 81mg by mouth daily Plavix 75mg by mouth daily Zofran 8mg under your tongue every 6 hours when you are nauseas Please attend the vestibular Please take care and be well! Referrals: Errol Hernandez MD [Staff Provider] -
--- NOTE | 2017-12-12 14:18 | CARD ---
APPROVED REPORT EXAM: Two-dimensional and M-mode echocardiogram with Doppler and color DoppleR with bubble Other Information Quality : GoodRhythm : INDICATION Dizziness and Vertigo Echo Enhancing Agent Indication: Rule out thrombus Agent/Amount Used: bubble 2D DIMENSIONS IVSd0.8 (0.7-1.1cm)LVDd5.0 (3.9-5.9cm) PWd0.9 (0.7-1.1cm)LVDs2.9 (2.5-4.0cm) FS (%) 42.5 %LVEF (%)73.3 (>50%) M-Mode DIMENSIONS Left Atrium (MM)3.63 (2.5-4.0cm)Aortic Root3.24 (2.2-3.7cm) Aortic Cusp Exc.2.28 (1.5-2.0cm) Mitral Valve MV E Apbvbttf86.4cm/sMV A Bvuivkvm34.9cm/sE/A ratio1.4 TDI E/Lateral E'0.0E/Medial E'0.0 Tricuspid Valve TR Peak [id number]/sTR Peak [id number] LEFT VENTRICLE The left ventricle is normal size. There is normal left ventricular wall thickness. Left ventricle systolic function is normal. The Ejection Fraction is 65-70%. There is normal LV segmental wall motion. The left ventricular diastolic function is normal. There is no ventricular septal defect visualized. RIGHT VENTRICLE The right ventricle is normal size. The right ventricular systolic function is normal. ATRIA The left atrium size is normal. The right atrium size is normal. AORTIC VALVE The aortic valve is tri-cuspid. The aortic valve is normal in structure. No aortic regurgitation is present. There is no aortic valvular stenosis. MITRAL VALVE The mitral valve is normal in structure. There is no evidence of mitral valve prolapse. There is no mitral valve regurgitation noted. TRICUSPID VALVE The tricuspid valve is normal in structure. There is trace tricuspid regurgitation. Right ventricular systolic pressure is estimated at 30-40 mmHg. There is mild pulmonary hypertension. PULMONIC VALVE The pulmonary valve is normal in structure. There is no pulmonic valvular regurgitation. GREAT VESSELS The aortic root is normal in size. The ascending aorta is normal in size. The IVC is normal in size and collapses >50% with inspiration. PERICARDIAL EFFUSION There is no pericardial effusion. <Conclusion> Left ventricle systolic function is normal. The Ejection Fraction is 65-70%. The left ventricular diastolic function is normal. There is mild pulmonary hypertension. No [id number] shunt on bubble study.
[2017-12-14 20:05] LABS: PHOSPHATIDYLSERINE AB IGG <10 U/mL (<10); PHOSPHATIDYLSERINE AB IGM <25 U/mL (<25)
[2017-12-14 21:46] LABS: CARDIOLIPIN AB (IGA) <11 APL (<=11); CARDIOLIPIN AB (IGG) <14 GPL (<=14); CARDIOLIPIN AB (IGM) <12 MPL (<=12)
[2017-12-14 23:11] LABS: B2 GLYCOPROTEIN I AB(IGA) <9 SAU (<=20); B2 GLYCOPROTEIN I AB(IGG) <9 SGU (<=20); B2 GLYCOPROTEIN I AB(IGM) <9 SMU (<=20)
[2017-12-14 23:52] LABS: PHOSPHATIDYLSERINE AB IGA <20 U/mL (<20)
== END 2017-12-12 13:02 | disposition home or self-care (01) ==
LOC: C.ER 09:51 → C.9E 15:32 → C.3T 19:46 → C.6T 12-11 17:38
PROVIDERS: ADMIT Hospitalist; ATTEND Internal Medicine
DX: R42 Dizziness and giddiness (principal); I66.22 Occlusion and stenosis of left posterior cerebral artery; Z83.3 Family history of diabetes mellitus; R11.2 Nausea with vomiting, unspecified; H53.8 Other visual disturbances
CPT/HCPCS: 36415; 70450; 70496; 70498; 70544; 70551; 80048; 80053; 80061; 82607; 82746; 83036; 83090; 83735; 84100; 84439; 84443; 85025; 85220; 85300; 85303; 85306; 85651; 86140; 86146; 86147; 86148; 86618; 93005; 93306; 96361; 96372; 96374; 96375; 96376; 97116; 97162; 99285; G0378; G8978; G8979; J0780; J1200; J1644; J2060; J2765; J2930; J7040; J7120; Q9967